=== PATIENT | male | born 1950 | race Caucasian/White ===

== ENCOUNTER 2018-11-08 18:33 | Outpatient (REF) | payer MEDICARE, OTHER, SELFPAY ==
[2018-11-08 22:38] LABS: Abs Immature Grans 0.03 k/cumm (0.0-0.09); Absolute Basophil Count 0.08 k/cumm (0.0-0.2); Absolute Eosinophil Count 0.23 k/cumm (0.0-0.7); Absolute Lymphocyte Count 2.89 k/cumm (1.2-3.4); Absolute Monocyte Count 0.85 k/cumm (0.11-0.7); Absolute Neutrophil Count 6.17 k/cumm (1.2-6.7); Basophils % 0.8; Eosinophils % 2.2; HCT 44.8 % (40.0-50.0); HGB 15.4 g/dL (13.5-17.5); Immature Grans % 0.3; Lymphocytes % 28.2; Mean Corp. HGB Concentration 34.4 g/dL (32.0-36.0); Mean Corpuscular Volume 87.3 fL (80-95); Mean Platelet Volume 13.1 fL (8.0-11.0); Monocytes % 8.3; Neutrophils % 60.2; Platelet Count 374 x1000/uL (130-400); RBC 5.13 m/cumm (4.50-6.00); RBC Distribution Width 14.3 % (11.8-14.1); White Blood Cell Count 10.25 k/cumm (4.4-10.8)
[2018-11-08 22:51] LABS: ALT 38 U/L (12-78); AST 23 U/L (15-37); Albumin 3.6 g/dL (3.4-5.0); Alkaline Phosphatase 121 U/L (46-116); Anion Gap 4.4 mmol/L (3-11); BUN 18 mg/dL (7-18); Bilirubin, Total 0.4 mg/dL (0.2-1.0); CO2 34.6 mmol/L (21.0-32.0); CREATININE 1.22 mg/dL (0.70-1.30); Calcium 9.7 mg/dL (8.5-10.1); Chloride 102 mmol/L (98-107); Cholesterol 192 mg/dL (50-200); Estimated GFR 59.25 (mL/min/1.73m2); Glucose 86 mg/dL (70-100); HDL Cholesterol 35 mg/dL (40-60); LDL CHOLESTEROL 133 mg/dL (<100); Potassium 3.3 mmol/L (3.5-5.1); Sodium 141 mmol/L (136-145); TSH (W/Ref FT4) 2.33 uIU/mL (0.358-3.74); Total Protein 7.5 g/dL (6.4-8.2); Triglyceride 152 mg/dL (30-150)
== END 2018-11-08 18:53 ==
LOC: NCHCN 18:33
PROVIDERS: Visit Provider Family Medicine
DX: I10 Essential (primary) hypertension (principal); H53.2 Diplopia
CPT/HCPCS: 80053; 80061; 83721; 84443; 85025

== ENCOUNTER 2018-12-26 16:20 | Outpatient (REF) | payer MEDICARE, OTHER, SELFPAY ==
[2018-12-28 09:17] LABS: PSA, Screening 0.2 ng/ml (0-4.5)
== END 2018-12-26 16:40 ==
LOC: NCHCN 16:20
PROVIDERS: Visit Provider Registered Nurse
DX: Z12.5 Encounter for screening for malignant neoplasm of prostate (principal)
CPT/HCPCS: 84153

== ENCOUNTER 2019-02-05 11:09 | Outpatient (REF) | payer MEDICARE, OTHER, SELFPAY ==
[2019-02-05 22:46] LABS: Potassium 3.4 mmol/L (3.5-5.1)
== END 2019-02-05 11:29 ==
LOC: NCHCN 11:09
PROVIDERS: Visit Provider Registered Nurse
DX: E87.6 Hypokalemia (principal)
CPT/HCPCS: 84132

== ENCOUNTER 2019-02-27 10:36 | Outpatient (REF) | payer MEDICARE, OTHER, SELFPAY ==
[2019-02-27 22:10] LABS: Potassium 3.6 mmol/L (3.5-5.1)
== END 2019-02-27 10:56 ==
LOC: NCHCN 10:36
PROVIDERS: Visit Provider Registered Nurse
DX: E87.6 Hypokalemia (principal)
CPT/HCPCS: 84132

== ENCOUNTER 2019-10-24 17:36 | Outpatient (REF) | payer OTHER, MEDICARE, SELFPAY ==
[2019-10-24 22:11] LABS: Anion Gap 9.8 mmol/L (3-11); BUN 18 mg/dL (7-18); CO2 31.2 mmol/L (21.0-32.0); CREATININE 1.09 mg/dL (0.70-1.30); Calcium 9.1 mg/dL (8.5-10.1); Chloride 101 mmol/L (98-107); Glucose 72 mg/dL (74-106); Potassium 3.5 mmol/L (3.5-5.1); Sodium 142 mmol/L (136-145)
== END 2019-10-24 17:56 ==
LOC: NCHCN 17:36
PROVIDERS: Visit Provider Registered Nurse
DX: I10 Essential (primary) hypertension (principal)
CPT/HCPCS: 80048

== ENCOUNTER 2020-11-12 20:13 | Outpatient (REF) | payer MEDICARE, OTHER, SELFPAY ==
[2020-11-12 22:20] LABS: Anion Gap 10.2 mmol/L (3-11); BUN 23 mg/dL (7-18); CO2 30.8 mmol/L (21.0-32.0); CREATININE 1.2 mg/dL (0.70-1.30); Calcium 9.5 mg/dL (8.5-10.1); Calculated LDL 135 mg/dL (<100); Chloride 101 mmol/L (98-107); Cholesterol 198 mg/dL (<200); Glucose 95 mg/dL (74-106); HDL Cholesterol 39 mg/dL (40-60); Potassium 3.8 mmol/L (3.5-5.1); Sodium 142 mmol/L (136-145); Triglyceride 124 mg/dL (<150)
[2020-11-13 18:55] LABS: PSA, Screening 0.1 ng/mL (0.0-4.5)
== END 2020-11-12 20:14 | disposition home or self-care (01) ==
LOC: NCHCN 20:13
PROVIDERS: Visit Provider Registered Nurse
DX: I10 Essential (primary) hypertension (principal); Z12.5 Encounter for screening for malignant neoplasm of prostate
CPT/HCPCS: 80048; 80061; 84153

== ENCOUNTER 2021-09-03 19:00 | Outpatient (REF) | payer MEDICARE, OTHER, SELFPAY ==
[2021-09-03 16:00] LABS: Anion Gap 7.2 mmol/L (3-11); BUN 15 mg/dL (7-18); CO2 32.8 mmol/L (21.0-32.0); CREATININE 1.2 mg/dL (0.70-1.30); Calcium 9.2 mg/dL (8.5-10.1); Chloride 102 mmol/L (98-107); Estimated GFR 59.86 (mL/min/1.73m2); Glucose 95 mg/dL (74-106); Potassium 3.6 mmol/L (3.5-5.1); Sodium 142 mmol/L (136-145)
== END 2021-09-03 19:01 | disposition home or self-care (01) ==
LOC: NCHCN 19:00
PROVIDERS: Visit Provider Registered Nurse
DX: I10 Essential (primary) hypertension (principal)
CPT/HCPCS: 80048

== ENCOUNTER 2022-03-03 21:05 | Outpatient (REF) | payer MEDICARE, OTHER, SELFPAY ==
[2022-03-03 21:33] LABS: ALT 41 U/L (16-63); AST 26 U/L (15-37); Albumin 4.1 g/dL (3.4-5.0); Alkaline Phosphatase 119 U/L (46-116); Bilirubin, Direct 0.2 mg/dL (0.0-0.2); Bilirubin, Total 0.7 mg/dL (0.2-1.0); Total Protein 8.1 g/dL (6.4-8.2)
== END 2022-03-03 21:06 | disposition home or self-care (01) ==
LOC: LBN 21:05
PROVIDERS: Visit Provider Registered Nurse
DX: E78.5 Hyperlipidemia, unspecified (principal)
CPT/HCPCS: 80076

== ENCOUNTER 2022-06-01 18:02 | Outpatient (REF) | payer MEDICARE, SELFPAY ==
[2022-06-01 15:01] LABS: ALT 26 U/L (16-63); AST 25 U/L (15-37); Albumin 3.5 g/dL (3.4-5.0); Alkaline Phosphatase 130 U/L (46-116); Bilirubin, Direct 0.1 mg/dL (0.0-0.2); Bilirubin, Total 0.6 mg/dL (0.2-1.0); Total Protein 7.6 g/dL (6.4-8.2)
[2022-06-01 15:12] LABS: Calculated LDL 43 mg/dL (<100); Cholesterol 96 mg/dL (<200); HDL Cholesterol 40 mg/dL (40-60); Triglyceride 68 mg/dL (<150)
== END 2022-06-01 18:03 | disposition home or self-care (01) ==
LOC: NCHCN 18:02
PROVIDERS: Visit Provider Registered Nurse
DX: E78.5 Hyperlipidemia, unspecified (principal)
CPT/HCPCS: 80061; 80076

== ENCOUNTER 2022-07-01 15:59 | Outpatient (REF) | payer MEDICARE, SELFPAY ==
[2022-07-01 16:49] LABS: Alkaline Phosphatase 141 U/L (46-116); GGT 33 U/L (15-85)
== END 2022-07-01 16:00 | disposition home or self-care (01) ==
LOC: NCHCN 15:59
PROVIDERS: Visit Provider Registered Nurse
DX: R74.8 Abnormal levels of other serum enzymes (principal)
CPT/HCPCS: 82977; 84075

== ENCOUNTER 2022-07-08 11:42 | Outpatient (REF) | payer MEDICARE, SELFPAY ==
[2022-07-08 15:52] LABS: PHOSPHORUS 2.4 mg/dL (2.6-4.7); TSH 1.84 uIU/mL (0.36-3.74)
[2022-07-08 16:38] LABS: Vitamin D 25 Total 46.6 ng/mL (30-100)
[2022-07-09 12:55] LABS: Parathyroid Hormone,Intact 27 pg/mL (19-88)
== END 2022-07-08 11:43 | disposition home or self-care (01) ==
LOC: NCHCN 11:42
PROVIDERS: Visit Provider Registered Nurse
DX: R74.8 Abnormal levels of other serum enzymes (principal); E78.5 Hyperlipidemia, unspecified
CPT/HCPCS: 82306; 83970; 84100; 84443

== ENCOUNTER 2022-11-01 13:10 | Outpatient (REF) | payer MEDICARE, OTHER, SELFPAY ==
[2022-11-01 16:01] LABS: PHOSPHORUS 2.4 mg/dL (2.6-4.7)
[2022-11-03 16:15] LABS: Alkaline Phosphatase 147 U/L (40 - 129); Bone % 38.6 % (19.1-67.7); Liver % 57.5 % (27.8-76.3); Liver 2% 3.9 % (0.0-8.0)
== END 2022-11-01 13:11 | disposition home or self-care (01) ==
LOC: NCHCN 13:10
PROVIDERS: Visit Provider Registered Nurse
DX: R74.8 Abnormal levels of other serum enzymes (principal)
CPT/HCPCS: 84075; 84080; 84100

== ENCOUNTER 2023-01-05 20:42 | Outpatient (REF) | payer MEDICARE, OTHER, SELFPAY ==
[2023-01-05 16:45] LABS: ALT 32 U/L (16-63); AST 23 U/L (15-37); Albumin 4.1 g/dL (3.4-5.0); Alkaline Phosphatase 171 U/L (46-116); Anion Gap 6.1 mmol/L (3-11); BUN 15 mg/dL (7-18); Bilirubin, Total 0.5 mg/dL (0.2-1.0); CO2 29.9 mmol/L (21.0-32.0); CREATININE 1.2 mg/dL (0.70-1.30); Calcium 9.8 mg/dL (8.5-10.1); Chloride 105 mmol/L (98-107); Estimated GFR 64.25 (mL/min/1.73m2); Glucose 104 mg/dL (74-106); Potassium 4.4 mmol/L (3.5-5.1); Sodium 141 mmol/L (136-145); TSH (W/Ref FT4) 1.78 uIU/mL (0.36-3.74); Total Protein 8.6 g/dL (6.4-8.2)
== END 2023-01-05 20:43 | disposition home or self-care (01) ==
LOC: NCHCN 20:42
PROVIDERS: Visit Provider Registered Nurse
DX: R53.83 Other fatigue (principal); R74.8 Abnormal levels of other serum enzymes
CPT/HCPCS: 80053; 84443

== ENCOUNTER 2023-01-10 15:00 | Outpatient (REF) | payer MEDICARE, OTHER, SELFPAY ==
[2023-01-11 01:18] LABS: PSA, Screening 0.1 ng/mL (<=6.5)
== END 2023-01-10 15:01 | disposition home or self-care (01) ==
LOC: NCHCN 15:00
PROVIDERS: Visit Provider Registered Nurse
DX: Z12.5 Encounter for screening for malignant neoplasm of prostate (principal)
CPT/HCPCS: 84153

== ENCOUNTER 2023-06-17 13:31 | Outpatient (REF) | payer MEDICARE, OTHER, SELFPAY ==
[2023-06-17 14:02] LABS: ALT 41 U/L (16-63); AST 30 U/L (15-37); Albumin 3.9 g/dL (3.4-5.0); Alkaline Phosphatase 153 U/L (46-116); Anion Gap 7.1 mmol/L (3-11); BUN 18 mg/dL (7-18); Bilirubin, Total 1.1 mg/dL (0.2-1.0); CO2 29.9 mmol/L (21.0-32.0); CREATININE 1.3 mg/dL (0.70-1.30); Calcium 9.8 mg/dL (8.5-10.1); Chloride 102 mmol/L (98-107); Estimated GFR 58.37 (mL/min/1.73m2); Glucose 107 mg/dL (74-106); Potassium 4.7 mmol/L (3.5-5.1); Sodium 139 mmol/L (136-145); Total Protein 8.2 g/dL (6.4-8.2)
== END 2023-06-17 13:32 | disposition home or self-care (01) ==
LOC: NCHCN 13:31
PROVIDERS: Visit Provider Registered Nurse
DX: I10 Essential (primary) hypertension (principal); R74.8 Abnormal levels of other serum enzymes
CPT/HCPCS: 80053

== ENCOUNTER 2023-08-19 15:45 | Outpatient (REF) | payer MEDICARE, OTHER, SELFPAY ==
[2023-08-19 14:19] LABS: ALT 35 U/L (16-63); AST 25 U/L (15-37); Albumin 3.6 g/dL (3.4-5.0); Alkaline Phosphatase 141 U/L (46-116); Bilirubin, Direct 0.1 mg/dL (0.0-0.2); Bilirubin, Total 0.7 mg/dL (0.2-1.0); Total Protein 7.4 g/dL (6.4-8.2)
== END 2023-08-19 15:46 | disposition home or self-care (01) ==
LOC: NCHCN 15:45
PROVIDERS: Visit Provider Nurse Practitioner Family
DX: R74.9 Abnormal serum enzyme level, unspecified (principal)
CPT/HCPCS: 80076

== ENCOUNTER 2023-11-28 16:43 | Outpatient (REF) | payer MEDICARE, OTHER, SELFPAY ==
[2023-11-28 21:43] LABS: Hemoglobin A1C 5.7 % (<5.7)
[2023-11-28 21:50] LABS: ALT 35 U/L (16-63); AST 28 U/L (15-37); Albumin 3.7 g/dL (3.4-5.0); Alkaline Phosphatase 147 U/L (46-116); Anion Gap 7.3 mmol/L (3-11); BUN 17 mg/dL (7-18); Bilirubin, Total 0.6 mg/dL (0.2-1.0); CO2 29.7 mmol/L (21.0-32.0); CREATININE 1.3 mg/dL (0.70-1.30); Calcium 9.3 mg/dL (8.5-10.1); Chloride 106 mmol/L (98-107); Estimated GFR 58.37 (mL/min/1.73m2); GGT 32 U/L (15-85); Glucose 96 mg/dL (74-106); Potassium 4.6 mmol/L (3.5-5.1); Sodium 143 mmol/L (136-145); Total Protein 7.7 g/dL (6.4-8.2)
== END 2023-11-28 16:44 | disposition home or self-care (01) ==
LOC: NCHCN 16:43
PROVIDERS: PCP Nurse Practitioner Family; Visit Provider Nurse Practitioner Family
DX: E16.2 Hypoglycemia, unspecified (principal); R74.9 Abnormal serum enzyme level, unspecified
CPT/HCPCS: 80053; 82977; 83036

== ENCOUNTER 2023-12-08 14:44 | Outpatient (REF) | payer MEDICARE, OTHER, SELFPAY ==
[2023-12-08 22:02] LABS: PHOSPHORUS 2.2 mg/dL (2.6-4.7)
[2023-12-09 18:07] LABS: Parathyroid Hormone,Intact 58 pg/mL (19-88)
== END 2023-12-08 14:45 | disposition home or self-care (01) ==
LOC: NCHCN 14:44
PROVIDERS: PCP Nurse Practitioner Family; Visit Provider Nurse Practitioner Family
DX: R74.8 Abnormal levels of other serum enzymes (principal)
CPT/HCPCS: 82306; 83970; 84100

== ENCOUNTER 2024-06-21 19:45 | Outpatient (REF) | payer MEDICARE, OTHER, SELFPAY ==
[2024-06-21 14:47] LABS: HCT 45.7 % (40.0-50.0); HGB 15.3 g/dL (13.5-17.5); MCH 30.6 pg (27.0-33.0); MCHC 33.5 % (32.0-36.0); MCV 91 fL (80-95); MPV 12.4 fL (8.0-11.0); Platelet Count 329 10^3/uL (130-400); RDW 14.1 % (11.8-14.1); RDW-SD 47.6 fL; WBC 12.65 10^3/uL (4.4-10.8)
[2024-06-21 15:33] LABS: Hemoglobin A1C 5.7 % (<5.7)
[2024-06-21 15:42] LABS: ALT 26 U/L (16-63); AST 22 U/L (15-37); Albumin 3.6 g/dL (3.4-5.0); Alkaline Phosphatase 136 U/L (46-116); Anion Gap 7.8 mmol/L (3-11); BUN 18 mg/dL (7-18); CO2 29.2 mmol/L (21.0-32.0); CREATININE 1.2 mg/dL (0.70-1.30); Calcium 9.3 mg/dL (8.5-10.1); Calculated LDL 43 mg/dL (<100); Chloride 105 mmol/L (98-107); Cholesterol 98 mg/dL (<200); Estimated GFR 63.85 (mL/min/1.73m2); Glucose 103 mg/dL (74-106); HDL Cholesterol 45 mg/dL (40-60); Sodium 142 mmol/L (136-145); Total Protein 7.6 g/dL (6.4-8.2); Triglyceride 51 mg/dL (<150); Vitamin D 25 Total 80.8 ng/mL (30-100)
[2024-06-21 16:12] LABS: PHOSPHORUS 2.9 mg/dL (2.6-4.7)
== END 2024-06-21 19:46 | disposition home or self-care (01) ==
LOC: NCHCN 19:45
PROVIDERS: PCP Nurse Practitioner Family; Visit Provider Nurse Practitioner Family
DX: R74.9 Abnormal serum enzyme level, unspecified (principal); R73.03 Prediabetes; E78.5 Hyperlipidemia, unspecified
CPT/HCPCS: 80053; 80061; 82306; 85027; 83036; 84100

== ENCOUNTER 2024-12-20 11:42 | Outpatient (REF) | payer MEDICARE, SELFPAY ==
[2024-12-20 14:49] LABS: HCT 48.6 % (40.0-50.0); HGB 15.7 g/dL (13.5-17.5); MCH 30.4 pg (27.0-33.0); MCHC 32.3 % (32.0-36.0); MCV 94 fL (80-95); Platelet Count 294 10^3/uL (130-400); RBC 5.17 10^6/uL (4.36-5.78); RDW-SD 48.1 fL; WBC 9.67 10^3/uL (4.4-10.8)
[2024-12-20 15:54] LABS: ALT 38 U/L (16-63); AST 30 U/L (15-37); Albumin 3.9 g/dL (3.4-5.0); Alkaline Phosphatase 139 U/L (46-116); Anion Gap 8.9 mmol/L (3-11); BUN 16 mg/dL (7-18); Bilirubin, Total 0.8 mg/dL (0.2-1.0); CO2 29.1 mmol/L (21.0-32.0); CREATININE 1.3 mg/dL (0.70-1.30); Calcium 10.1 mg/dL (8.5-10.1); Chloride 106 mmol/L (98-107); Estimated GFR 57.65 (mL/min/1.73m2); Glucose 95 mg/dL (74-106); Potassium 3.8 mmol/L (3.5-5.1); Sodium 144 mmol/L (136-145); Total Protein 7.7 g/dL (6.4-8.2)
[2024-12-20 17:10] LABS: Hemoglobin A1C 5.7 % (<5.7)
== END 2024-12-20 11:43 | disposition home or self-care (01) ==
LOC: NCHCN 11:42
PROVIDERS: PCP Nurse Practitioner Family; Visit Provider Nurse Practitioner Family
DX: R73.03 Prediabetes (principal)
CPT/HCPCS: 80053; 85027; 83036